=== PATIENT | female | born 1985 | race Caucasian/White ===

== ENCOUNTER 2018-09-20 10:56 | Emergency (ER) | payer MEDICAID, OTHER ==
[2018-09-20] MEDS ORDERED: EPINEPHrine RACEMIC INH 0.5 ML DEYVIAL IH ONE (11:35)
[2018-09-20 11:45] VITALS: BP 113/74
--- NOTE | 2018-09-20 11:58 | EDPHY ---
General - History Smoking Status: Never smoked Time Seen by Provider: 09/20/18 11:05 Narrative: CLINICAL IMPRESSION: Laryngitis, possible vocal cord dysfunction, viral URI with cough ASSESSMENT/PLAN: 33-year-old female presents to the emergency department from urgent care with complaints of increased shortness of breath and throat tightness in the setting of recent clinical diagnosis of influenza yesterday. Patient is currently on Tamiflu as well as a prednisone taper, took a 50 mg prednisone dose this morning , and arrives with stable vital signs, no hypoxia, fever, tachypnea or tachycardia. She was noted to have mild inspiratory stridor, no expiratory wheezing appreciated and lower lungs are clear. Soft tissue x-rays of the neck on lungs show no evidence of epiglottitis, tracheitis, or lower respiratory disease or infiltrate. Patient received a racemic epi neb with significant improvement in her symptoms. She is tolerating secretions and fluids well. I discussed and offered fiberoptic laryngoscopy but she has declined. She was reassured, home care discussed, PCP follow-up recommended, warning signs for return to ED sooner outlined and discharge. DIFFERENTIAL DX: Differential includes but not limited to laryngitis, tracheitis, epiglottitis, bronchitis, pneumonia, influenza like syndrome, vocal cord dysfunction ED PROCEDURES: See lab and/or imaging results below ED COURSE: 11:30 a.m.:. Patient seen and assessed by myself. Vital signs stable, no hypoxia, tachypnea or tachycardia. Respiratory difficulty is more consistent with inspiratory stridor. She is tolerating secretions well. No reports of aspiration or foreign body. Plan for chest x-ray, soft tissue neck x-rays, racemic epi neb, patient took prednisone this morning at a dose of 50 mg. 12:50 p.m.: Patient reassessed, feeling significant improvement, no longer stridorous, tolerating secretions, vital signs remained stable, x-ray show no evidence of epiglottitis, significant tracheitis, cervical adenitis, soft tissue gas, or lower respiratory disease or pneumonia. Patient was reassured. Encouraged to continue her prednisone taper, voice rest, cool mist humidification, follow up with primary care. They are comfortable this plan. CHIEF COMPLAINT: Throat tightness and shortness of breath HPI: This is a 33-year-old otherwise healthy female presents to the emergency department from urgent care for evaluation of throat tightness and shortness of breath. Patient was seen yesterday at urgent care for flu-like symptoms x3 days including sore throat, congestion, cough and myalgias. She was treated with a prednisone taper, albuterol neb, and an albuterol HFA was prescribed. She states the albuterol neb helped slightly yesterday but she has not had relief with albuterol HFA overnight and today. She took her prednisone dose today, 50 mg. She is able to tolerate secretions. No history of underlying cardiopulmonary disease or asthma. She is also taking Tamiflu but did not have a flu swab performed yesterday. No history of pneumonia. She admits to hoarseness and voice changes. No history of tracheitis or airway compromise. No foreign body or aspiration. PAST MEDICAL HISTORY: None reported See nurse/triage notes for additional history if applicable Pertinent Past Surgical History: None reported Family History: Noncontributory Social History: , here with her , nonsmoker REVIEW OF SYSTEMS: All other systems negative Constitutional: Positive for fever and chills appetite change.] Eyes: No discharge, vision change ENT: Positive for sore throat and congestion Cardiovascular: No chest pain, no palpitations. Respiratory: Positive for cough and shortness of breath shortness of breath. Gastrointestinal: No abdominal pain, no vomiting, diarrhea. Musculoskeletal: No back pain, joint swelling, joint pain, myalgias. Skin: No rashes, color change. PHYSICAL EXAM: General Appearance: Alert, oriented, appropriate, cooperative, audible intermittent stridor appreciated, no hypoxia, tachypnea or tachycardia, no tripod positioning, tolerating secretions well no hypoxia. HEENT: TMs are clear bilaterally no perforation or FB, no injection, no evidence of serous or mucopurulent otitis. Oropharynx clear is with mild posterior pharyngeal wall erythema no exudates Dentition without abnormality. Eyes: PERRLA, no acute vision change, nystagmus, swelling, discharge, pain or photosensitivity. Conjunctiva pink, no pallor or injection Neck: Supple, nontender, no lymphadenopathy, no midline pain, FROM, no meningismus. Respiratory: There are no retractions, lungs are clear to auscultation. Cardiac: Regular rate and rhythm, no murmurs or gallops. Gastrointestinal: Abdomen is soft, nontender, bowel sounds normal, no masses/ hernia, no rigidity, guarding or focal peritoneal findings. Neurological: Alert and oriented x 3, CN 2-12 grossly intact, normal gait no ataxia, DTR's intact, normal sensation and strength Skin: Warm, dry, no rashes, no nodules on palpation. Musculoskeletal: Extremities are symmetrical, full range of motion, no tenderness, deformity, swelling, or erythema. Psychiatric: Patient is oriented X 3, there is no agitation. MEDICAL DECISION MAKING: Patient was seen independently. Secondary supervising physician at time of evaluation was Dr. Guajardo . Diagnosis: Laryngitis, viral URI with cough. New, requires workup Summary: See Assessment and Plan for summary of ED visit Independent visualization of images, tracing, or specimens: Yes. Decision to obtain medical records or history from someone other than the patient: No Review / Summarize previous medical records: None available Discussed patient with another provider: No Patient Progress: Stable for discharge. (Satish Quiles) Medical Decision Making: PHYSICIAN DOCUMENTATION: The patient was evaluated and managed by the Physician Illusionist. My co- signature indicates that I have reviewed this chart and I agree with the findings and plan of care as documented. I am the secondary supervising physician. (Jamari Guajardo) - Diagnostics Imaging Results: Imaging Impressions Chest X-Ray 09/20/18 11:35 Impression: Normal chest x-ray. Soft Tissue Neck X-Ray 09/20/18 11:35 Impression: Normal soft tissue view of the neck. - Objective Vital Signs: Initial Vital Signs Temperature (C) 36.8 C 09/20/18 10:56 Heart Rate 86 09/20/18 10:56 Respiratory Rate 18 09/20/18 10:56 Blood Pressure 125/76 H 09/20/18 10:56 O2 Sat (%) 97 09/20/18 10:56 O2 Delivery Mode Room Air Allergies/Adverse Reactions: amoxicillin Allergy (Verified 09/20/18 11:01) Sulfa (Sulfonamide Antibiotics) Allergy (Verified 09/20/18 11:01) Home Medications: Medication Instructions Recorded Albuterol 09/20/18 Prednisone 09/20/18 Tamiflu 09/20/18 Tessalon Pearles 09/20/18 Medications Given: Discontinued Medications Epinephrine (S-2) 0.5 ml IH EDNOW ONE Stop: 09/20/18 11:36 Last Admin: 09/20/18 11:45 Dose: 0.5 ml Departure - Departure Disposition: Home, Routine, Self-Care Clinical Impression: Laryngitis, Inspiratory stridor Condition: Good Instructions: Laryngitis (ED) Additional Instructions: DISCHARGE INSTRUCTIONS FROM YOUR DOCTOR Thank you for visiting our emergency department today. You were treated by a physician machine operator assistant today and your case was reviewed with our ED Attending physician. Please keep in mind that discharge from the emergency department does not mean that there is nothing wrong - it simply means that we have not identified an emergency condition that requires further evaluation or treatment in the hospital. You should always plan to follow up with primary care for re- evaluation of your condition in the next 2-3 days. If you have been referred to a specialist, please call as soon as possible (today or tomorrow) to schedule your follow up appointment at the appropriate time. PLEASE CONTINUE PREDNISONE TAPER AT HOME PRESCRIBED. YOU RECEIVED A RACEMIC EPI NEB TODAY AND X-RAYS OF THE NECK AND CHEST WHICH WERE REASSURING AND READ BY THE RADIOLOGIST NEGATIVE. PLEASE REST HER VOICE, USE A COOL MIST HUMIDIFIER, AND STAY WELL-HYDRATED. HONEY MAY ALSO HELP WITH LARYNGITIS. CONTINUE TAMIFLU. MAKE A FOLLOW-UP APPOINTMENT WITH HER PRIMARY CARE DOCTOR IN THE NEXT 24-48 HOURS. RETURN TO THE EMERGENCY DEPARTMENT IMMEDIATELY FOR SEVERE STRIDOR OR DIFFICULTY BREATHING, NECK SWELLING, INABILITY TO TOLERATE HER OWN SECRETIONS, SEVERE OR WORSENING COUGH, PERSISTENT FEVERS, TROUBLE STAYING HYDRATED, OR ANY OTHER CONCERNS. People present with illnesses and injuries in different ways, and it is always possible that we have missed something. You may always return for re-evaluation if symptoms worsen or if they are not improving or if you develop new/different symptoms. Again, thank you for choosing our emergency department. We hope that you feel better. Referrals: Constance Ibarra MD [Primary Care Provider] - 1-2 days without fail
== END 2018-09-20 13:04 | disposition home or self-care (01) ==
LOC: EEVIPCON 10:56
DX: J04.0 Acute laryngitis (principal); R06.1 Stridor